=== PATIENT | female | born 1965 | race African-American/Black ===

== ENCOUNTER → 2019-02-19 | Emergency (ER) | payer BC, OTHER | LOC: BURERS 09:23 | DX: J11.1 Influenza due to unidentified influenza virus with other respiratory manifestations (principal); F41.9 Anxiety disorder, unspecified | CPT/HCPCS: 99283 ==

== ENCOUNTER 2023-03-14 11:56 | Outpatient (CLI) | payer BC | END 2023-03-14 11:57 | disposition home or self-care (01) | LOC: BURRAD 11:56 | PROVIDERS: ATTEND Neurological Surgery | DX: M54.50 Low back pain, unspecified (principal); M51.36 Other intervertebral disc degeneration, lumbar region; M54.16 Radiculopathy, lumbar region | CPT/HCPCS: 72100 ==